=== PATIENT | male | born 1960 | race Caucasian/White ===

== ENCOUNTER 2021-06-01 14:13 | Emergency (ER) | payer BC ==
[~2021-06-01] VITALS: Ht 167.6 cm; Wt 70.5 kg
[2021-06-01] MEDS ORDERED: METOPROLOL SUCC50 M1 PO (16:27)
[2021-06-01] MEDS ORDERED: NORCO 325 MG-51 TA1 PO (16:27)
[2021-06-01 16:49] VITALS: BP 153/106
== END 2021-06-01 16:40 | disposition home or self-care (01) ==
LOC: ED 14:13
DX: S20.211A Contusion of right front wall of thorax, initial encounter (principal); I10 Essential (primary) hypertension; W10.9XXA Fall (on) (from) unspecified stairs and steps, initial encounter
CPT/HCPCS: J1885